=== PATIENT | male | born 1955 | race Caucasian/White ===

== ENCOUNTER → 2016-06-12 | Outpatient (CLI) | payer OTHER ==
--- NOTE | 2016-06-12 12:13 | REP ---
Sinus series: Four views. History: Chronic sinusitis. Findings: Bony orbital and paranasal sinus margins are intact. The frontal, maxillary, ethmoid and sphenoid sinuses are clear. Mastoid aeration is normal and symmetric. The nasopharynx and hypopharynx are unremarkable. Impression: Negative paranasal sinus views. Signed by Juan Antonio Argueta MD 06/12/2016 01:14 P
== END ==
LOC: M WUC 10:10
PROVIDERS: ATTEND Physician Assistant
DX: J32.9 Chronic sinusitis, unspecified (principal)

== ENCOUNTER → 2016-11-16 | Outpatient (REF) | payer OTHER ==
[2016-11-16 12:16] LABS: ALBUMIN 4.2 GM/DL (3.2-5.2); ALBUMIN/GLOBULIN RATIO 1.35 (1.00-1.93); ALKALINE PHOSPHATASE 71 U/L (45-117); ALT/SGPT 28 U/L (12-78); ANION GAP 9 MEQ/L (8-16); AST/SGOT 22 U/L (15-37); BILIRUBIN,TOTAL 1.4 MG/DL (0.2-1.0); BLOOD UREA NITROGEN 20 MG/DL (7-18); CARBON DIOXIDE LEVEL 27 MEQ/L (21-32); CHLORIDE LEVEL 106 MEQ/L (98-107); CHOLESTEROL LEVEL 239 MG/DL (<200); CREATININE FOR GFR 1.19 MG/DL (0.70-1.30); GLOMERULAR FILTRATION RATE > 60.0 (>49); GLUCOSE, FASTING 122 MG/DL (80-110); POTASSIUM SERUM 4.2 MEQ/L (3.5-5.1); SODIUM LEVEL 142 MEQ/L (136-145); TOTAL PROTEIN 7.3 GM/DL (6.4-8.2); TRIGLYCERIDES LEVEL 202 MG/DL (<150)
== END ==
LOC: M SFHCPLAZ 07:53
PROVIDERS: ATTEND Family Medicine
DX: E78.2 Mixed hyperlipidemia (principal); Z12.5 Encounter for screening for malignant neoplasm of prostate

== ENCOUNTER → 2017-04-28 | Outpatient (REF) | payer OTHER ==
[2017-04-28 12:24] LABS: ALBUMIN 4.4 GM/DL (3.2-5.2); ALBUMIN/GLOBULIN RATIO 1.52 (1.00-1.93); ALKALINE PHOSPHATASE 62 U/L (45-117); ALT/SGPT 40 U/L (12-78); ANION GAP 8 MEQ/L (8-16); AST/SGOT 25 U/L (7-37); BILIRUBIN,TOTAL 1.2 MG/DL (0.2-1.0); BLOOD UREA NITROGEN 18 MG/DL (7-18); CALCIUM LEVEL 9.2 MG/DL (8.8-10.2); CARBON DIOXIDE LEVEL 29 MEQ/L (21-32); CHLORIDE LEVEL 106 MEQ/L (98-107); CHOLESTEROL LEVEL 242 MG/DL (<200); CHOLESTEROL RISK RATIO 3.666 (<5); CREATININE FOR GFR 1.13 MG/DL (0.70-1.30); GLOMERULAR FILTRATION RATE > 60.0 (>49); GLUCOSE, FASTING 87 MG/DL (70-100); HDL CHOLESTEROL 66 MG/DL (>40); NON-HDL-C 176 MG/DL; POTASSIUM SERUM 4.4 MEQ/L (3.5-5.1); SODIUM LEVEL 143 MEQ/L (136-145); TOTAL PROTEIN 7.3 GM/DL (6.4-8.2); TRIGLYCERIDES LEVEL 115 MG/DL (<150)
[2017-04-28 14:40] LABS: ESTIMATED AVERAGE GLUCOSE 126 MG/DL (60-110)
== END ==
LOC: M SFHCPLAZ 08:24
DX: R73.03 Prediabetes (principal); E78.2 Mixed hyperlipidemia
CPT/HCPCS: 80053

== ENCOUNTER → 2017-05-04 | Outpatient (CLI) | payer OTHER | LOC: M ADAMS 11:12 | DX: M18.11 Unilateral primary osteoarthritis of first carpometacarpal joint, right hand (principal) | CPT/HCPCS: 73130 ==

== ENCOUNTER → 2017-10-05 | Outpatient (REF) | payer OTHER | LOC: M SFHCLERA 15:44 | DX: L57.0 Actinic keratosis (principal) ==

== ENCOUNTER 2018-03-15 09:17 | Emergency (ER) | payer MEDICARE, OTHER ==
[~2018-03-15] VITALS: Ht 180.3 cm; Wt 78.2 kg
[2018-03-15] MEDS ORDERED: ONDA8TAB7 PO (09:31)
[2018-03-15] MEDS ORDERED: OXYC-517 PO (09:31)
[2018-03-15] MEDS ORDERED: KETOROLAC 30 MG/ML VIAL (J1885) IV ONE (10:00)
[2018-03-15] MEDS ORDERED: NS 1,000 ML IV ONE (10:00)
[2018-03-15] MEDS ORDERED: ONDANSETRON 4MG/2ML VIAL (J2405) IV ONE (10:00)
[2018-03-15 10:16] LABS: BASO # 0.1 10^3/uL (0.0-0.2); BASO % 0.5 % (0.0-1.0); EOS # 0.1 10^3/uL (0.0-0.50); EOS % 0.5 % (0.0-3.0); HEMOGLOBIN 15.9 g/dl (13.5-17.5); LYMPH # 1.3 10^3/uL (1.5-4.5); MEAN CORPUSCULAR HEMOGLOBIN 30.9 pg (27.0-33.0); MEAN CORPUSCULAR HGB CONC 34.6 g/dl (32.0-36.5); MEAN CORPUSCULAR VOLUME 89.5 fl (80.0-96.0); MONO # 1.3 10^3/uL (0.0-0.8); MONO % 11.3 % (0.0-5.0); NEUTROPHILS # 8.3 10^3/uL (1.8-7.7); NEUTROPHILS % 75.2 % (36.0-66.0); PLATELET COUNT, AUTOMATED 331 10^3/uL (150-450); RED BLOOD COUNT 5.14 10^6/uL (4.30-6.10)
--- NOTE | 2018-03-15 10:27 | REP ---
CT abdomen and pelvis without IV or oral contrast: History: Left flank pain. Comparison CT study is from August 04, 2005. CT findings: Digital preliminary knee bolter radiograph is unremarkable. The lung bases are clear on axial CT images. The liver shows mild diffuse fatty infiltration but is otherwise normal. No gallbladder abnormality is seen. Spleen is unremarkable. No adrenal lesion is seen on either side. Pancreas is unremarkable. There is no evidence of hydronephrosis, renal calculus, or mass. There is pancolonic diverticulosis. Diverticulosis changes are most numerous in the sigmoid colon. There is mural thickening and pericolonic streaking in an area of multiple large diverticula in the distal descending colon. This is consistent with acute diverticulitis. No abscess or free air is seen. There is some mild pericolonic streaking at the splenic flexure of the colon as well which may reflect old inflammatory change. Diverticulosis is seen here as well. There is no evidence of bowel obstruction. There are dystrophic calcifications in the prostate. No abdominal wall defect is seen. No bony destructive lesion is observed. Impression: Pancolonic diverticulosis. Acute diverticulitis distal descending colon. No evidence of abscess or free air. Electronically Signed by Juan Antonio Argueta MD 03/15/2018 03:08 P
[2018-03-15] MEDS ORDERED: FLAG500T PO (10:39)
[2018-03-15] MEDS ORDERED: CIPR-249 PO (10:39)
[2018-03-15 10:45] LABS: CALCIUM LEVEL 9.4 MG/DL (8.8-10.2); CREATININE FOR GFR 1.34 MG/DL (0.70-1.30); POTASSIUM SERUM 4.1 MEQ/L (3.5-5.1)
[2018-03-15] MEDS ORDERED: CIPROFLOXACIN 400 MG in APPROPRIATE DILUENT 1 EA IV ONE (10:45)
[2018-03-15] MEDS ORDERED: metroNIDAZOLE 500 MG in APPROPRIATE DILUENT 1 EA IV ONE (10:45)
[2018-03-15] MEDS ORDERED: REGL10TA6 PO (12:21)
[2018-03-15 12:46] VITALS: BP 157/78
[2018-03-15] MEDS ORDERED: DICY20TA11 PO (12:52)
== END 2018-03-15 12:55 | disposition home or self-care (01) ==
LOC: M ED 09:17
DX: K57.50 Diverticulosis of both small and large intestine without perforation or abscess without bleeding (principal); K57.92 Diverticulitis of intestine, part unspecified, without perforation or abscess without bleeding
CPT/HCPCS: 74176; 80053; 81001; 83690; 85025; 96365; 96366; 96374; 99284; J0744; J1885; J2405

== ENCOUNTER → 2018-04-13 | Outpatient (REF) | payer MEDICARE, OTHER ==
[~2018-04-13] MED LIST: CIPR-249 PO; DICY20TA11 PO; FLAG500T PO; ONDA8TAB7 PO; OXYC-517 PO; REGL10TA6 PO
[2018-04-13 16:04] LABS: BASO % 0.3 % (0.0-1.0); EOS # 0.1 10^3/uL (0.0-0.50); EOS % 0.4 % (0.0-3.0); HEMATOCRIT 45.7 % (42.0-52.0); HEMOGLOBIN 15.7 g/dl (13.5-17.5); LYMPH # 1.3 10^3/uL (1.5-4.5); LYMPH % 9.3 % (24.0-44.0); MEAN CORPUSCULAR HGB CONC 34.4 g/dl (32.0-36.5); MEAN CORPUSCULAR VOLUME 90.1 fl (80.0-96.0); MONO # 1.2 10^3/uL (0.0-0.8); MONO % 8.7 % (0.0-5.0); NEUTROPHILS # 11.6 10^3/uL (1.8-7.7); PLATELET COUNT, AUTOMATED 219 10^3/uL (150-450); RED BLOOD COUNT 5.07 10^6/uL (4.30-6.10); WHITE BLOOD COUNT 14.3 10^3/uL (4.0-10.0)
[2018-04-13 16:09] LABS: ALBUMIN 4.3 GM/DL (3.2-5.2); ALT/SGPT 21 U/L (12-78); BILIRUBIN,TOTAL 1.5 MG/DL (0.2-1.0); BLOOD UREA NITROGEN 16 MG/DL (7-18); CALCIUM LEVEL 9.2 MG/DL (8.8-10.2); CARBON DIOXIDE LEVEL 29 MEQ/L (21-32); CHLORIDE LEVEL 101 MEQ/L (98-107); CREATININE FOR GFR 1.15 MG/DL (0.70-1.30); GLOMERULAR FILTRATION RATE > 60.0 (>49); GLUCOSE, FASTING 114 MG/DL (70-100); POTASSIUM SERUM 4.1 MEQ/L (3.5-5.1); SODIUM LEVEL 139 MEQ/L (136-145); TOTAL PROTEIN 7.6 GM/DL (6.4-8.2)
== END ==
LOC: M SFHCPLAZ 13:47
PROVIDERS: ATTEND Nurse Practitioner Family
DX: K57.92 Diverticulitis of intestine, part unspecified, without perforation or abscess without bleeding (principal); R19.7 Diarrhea, unspecified

== ENCOUNTER → 2018-04-28 | Outpatient (CLI) | payer MEDICARE, OTHER ==
[2018-04-28 10:44] LABS: HEMATOCRIT 44.9 % (42.0-52.0); HEMOGLOBIN 15.2 g/dl (13.5-17.5); MEAN CORPUSCULAR HEMOGLOBIN 30.4 pg (27.0-33.0); MEAN CORPUSCULAR HGB CONC 33.9 g/dl (32.0-36.5); MEAN CORPUSCULAR VOLUME 89.8 fl (80.0-96.0); PLATELET COUNT, AUTOMATED 310 10^3/uL (150-450); WHITE BLOOD COUNT 4.9 10^3/uL (4.0-10.0)
[2018-04-28 11:02] LABS: HEMOGLOBIN A1c 6.3 %
[2018-04-28 11:12] LABS: ALBUMIN 4.3 GM/DL (3.2-5.2); ALT/SGPT 28 U/L (12-78); BILIRUBIN,TOTAL 0.6 MG/DL (0.2-1.0); BLOOD UREA NITROGEN 22 MG/DL (7-18); CARBON DIOXIDE LEVEL 28 MEQ/L (21-32); CHLORIDE LEVEL 107 MEQ/L (98-107); CHOLESTEROL LEVEL 187 MG/DL (<200); CHOLESTEROL RISK RATIO 2.493 (<5); CREATININE FOR GFR 1.12 MG/DL (0.70-1.30); GLOMERULAR FILTRATION RATE > 60.0 (>49); GLUCOSE, FASTING 110 MG/DL (70-100); HDL CHOLESTEROL 75 MG/DL (>40); LDL CHOLESTEROL 93 MG/DL (<100); NON-HDL-C 112 MG/DL; POTASSIUM SERUM 4.7 MEQ/L (3.5-5.1); SODIUM LEVEL 144 MEQ/L (136-145); TOTAL PROTEIN 7.2 GM/DL (6.4-8.2); TRIGLYCERIDES LEVEL 95 MG/DL (<150)
== END ==
LOC: M WUC 08:07
PROVIDERS: ATTEND Family Medicine
DX: A04.72 Enterocolitis due to Clostridium difficile, not specified as recurrent (principal); E78.2 Mixed hyperlipidemia; R73.03 Prediabetes; Z12.5 Encounter for screening for malignant neoplasm of prostate
CPT/HCPCS: 36415; 80053; 80061; 83036; 85027; G0103

== ENCOUNTER → 2019-04-22 | Outpatient (REF) | payer MEDICARE, OTHER ==
[~2019-04-22] MED LIST changes: +ONDA8TAB10 PO; -ONDA8TAB7 PO
[2019-04-22 13:44] LABS: ALBUMIN 4.3 GM/DL (3.2-5.2); BILIRUBIN,TOTAL 1.9 MG/DL (0.2-1.0); CALCIUM LEVEL 9.1 MG/DL (8.8-10.2); CHOLESTEROL RISK RATIO 2.785 (<5); CREATININE FOR GFR 1.37 MG/DL (0.70-1.30); GLOMERULAR FILTRATION RATE 55.3 (>49)
== END ==
LOC: M SFHCADAM 08:07
PROVIDERS: ATTEND Family Medicine
DX: E78.2 Mixed hyperlipidemia (principal); R73.03 Prediabetes; Z12.5 Encounter for screening for malignant neoplasm of prostate
CPT/HCPCS: 80053; 80061; 83036; G0103

== ENCOUNTER → 2019-05-08 | Outpatient (CLI) | payer MEDICARE, OTHER ==
--- NOTE | 2019-05-08 14:48 | REP ---
Clinical: Chronic stage III renal disease. Technique: Real time murray scale ultrasound examination using curved array transducer. Findings: The bilateral kidneys are normal in contour, size, echogenicity, and reniform shape out hydronephrosis, nephrolithiasis, cystic or renal mass lesion. Right kidney measures 11.2 x 4.5 x 4.7 cm. Left kidney measures 11.4 x 4.6 x 5.4 cm. The bladder is normal. The prostate gland is heterogeneous and mildly enlarged measuring 5.1 x 3.4 x 5.0 cm. Impression: Normal bilateral kidneys. Mild prostatomegaly. Electronically Signed by Jatin Dsouza MD 05/08/2019 02:39 P
== END ==
LOC: M RAD 14:01
PROVIDERS: ATTEND Family Medicine
DX: N18.3 Chronic kidney disease, stage 3 (moderate) (principal)

== ENCOUNTER 2019-09-21 09:34 | Emergency (ER) | payer MEDICARE, OTHER ==
[~2019-09-21] VITALS: Ht 180.3 cm; Wt 85.0 kg
[2019-09-21] MEDS ORDERED: SILD100T PO (09:40)
[2019-09-21] MEDS ORDERED: RIZA10TA58 PO (09:40)
[2019-09-21] MEDS ORDERED: ISOVUE-370 76% 100ML VIAL As Ordered ONE (10:12)
[2019-09-21 10:15] LABS: BASO % 0.5 % (0.0-1.0); EOS # 0.2 10^3/uL (0.0-0.5); EOS % 2.5 % (0.0-3.0); HEMATOCRIT 47.1 % (42.0-52.0); HEMOGLOBIN 15.7 g/dl (13.5-17.5); LYMPH # 1.6 10^3/uL (1.5-5.0); LYMPH % 22.2 % (24.0-44.0); MEAN CORPUSCULAR HEMOGLOBIN 30.9 pg (27.0-33.0); MEAN CORPUSCULAR HGB CONC 33.3 g/dl (32.0-36.5); MEAN CORPUSCULAR VOLUME 92.7 fl (80.0-96.0); MONO # 0.7 10^3/uL (0.0-0.8); MONO % 10.1 % (0.0-5.0); NEUTROPHILS # 4.7 10^3/uL (1.5-8.5); NEUTROPHILS % 64.4 % (36.0-66.0); PLATELET COUNT, AUTOMATED 217 10^3/uL (150-450); RED BLOOD COUNT 5.08 10^6/uL (4.30-6.10); WHITE BLOOD COUNT 7.3 10^3/uL (4.0-10.0)
--- NOTE | 2019-09-21 10:41 | REP ---
Clinical: Left lower quadrant pain. Technique: Axial contrast enhanced images from the lung bases to the pubic symphysis using oral (per protocol) and 100 ml Isovue 370 intravenous contrast material with coronal and sagittal re-formations. Findings: Mucosal thickening with pericolonic inflammatory stranding surrounding few diverticula of the distal descending colon consistent with acute diverticulitis (images 85 - 105). Further colonic and primarily sigmoid diverticulosis noted. Remainder of the small and large bowel is grossly unremarkable. No evidence for obstruction, perforation, or drainable collection/abscess. Fatty infiltration to the liver noted. Spleen, pancreas, gallbladder, bilateral adrenal glands and kidneys are normal. No ascites. No free air. No adenopathy. Pelvis demonstrates normal bladder and prostatomegaly. The abdominal aorta without aneurysm or dissection. Musculoskeletal structures are intact. Lung bases are clear. Impression: Acute diverticulitis involving the distal descending colon. No evidence for bowel obstruction or perforation. No drainable collection or abscess. Electronically Signed by Jatin Dsouza MD 09/21/2019 10:31 A
[2019-09-21 10:51] LABS: ALBUMIN 4.1 GM/DL (3.2-5.2); BILIRUBIN,DIRECT 0.4 MG/DL (0.0-0.2); BILIRUBIN,TOTAL 1.6 MG/DL (0.2-1.0); TOTAL PROTEIN 7.8 GM/DL (6.4-8.2)
[2019-09-21] MEDS ORDERED: CIPR-249 PO (11:12)
[2019-09-21] MEDS ORDERED: FLAG500T PO (11:12)
[2019-09-21 11:40] VITALS: BP 146/83
== END 2019-09-21 11:43 | disposition home or self-care (01) ==
LOC: M ED 09:34
DX: K57.32 Diverticulitis of large intestine without perforation or abscess without bleeding (principal); K21.9 Gastro-esophageal reflux disease without esophagitis; Z87.442 Personal history of urinary calculi; Z79.899 Other long term (current) drug therapy; Z88.0 Allergy status to penicillin
CPT/HCPCS: 36415; 74177; 80047; 80076; 81001; 83605; 83690; 85025; 99284; Q9967

== ENCOUNTER → 2020-04-03 | Outpatient (REF) | payer MEDICARE, OTHER ==
[~2020-04-03] MED LIST changes: +RIZA10TA58 PO; +SILD100T PO
[2020-04-03 13:53] LABS: ALBUMIN 4.4 GM/DL (3.2-5.2); CALCIUM LEVEL 9.4 MG/DL (8.8-10.2); CREATININE FOR GFR 1.36 MG/DL (0.70-1.30); GLOMERULAR FILTRATION RATE 55.6 (>49); PHOSPHORUS LEVEL 2.8 MG/DL (2.5-4.9); POTASSIUM SERUM 4.5 MEQ/L (3.5-5.1)
[2020-04-03 14:37] LABS: BILIRUBIN,TOTAL 1.1 MG/DL (0.2-1.0); CHOLESTEROL RISK RATIO 2.481 (<5); PROSTATIC SPECIFIC AG MONITOR 1.9 NG/ML (< 4.00); TOTAL PROTEIN 7.3 GM/DL (6.4-8.2)
== END ==
LOC: M SFHCADAM 08:39
PROVIDERS: ATTEND Family Medicine
DX: N18.30 Chronic kidney disease, stage 3 unspecified (principal); E78.5 Hyperlipidemia, unspecified; Z12.5 Encounter for screening for malignant neoplasm of prostate; R97.20 Elevated prostate specific antigen [PSA]

== ENCOUNTER → 2020-10-01 | Outpatient (REF) | payer MEDICARE, OTHER ==
[2020-10-01 14:28] LABS: ALBUMIN 4.6 GM/DL (3.2-5.2); BILIRUBIN,TOTAL 1.6 MG/DL (0.2-1.0); CALCIUM LEVEL 10.2 MG/DL (8.8-10.2); CHOLESTEROL RISK RATIO 3.493 (<5); CREATININE FOR GFR 1.42 MG/DL (0.70-1.30); GLOMERULAR FILTRATION RATE 52.9 (>49); POTASSIUM SERUM 5.3 MEQ/L (3.5-5.1)
== END ==
LOC: M SFHCADAM 08:27
PROVIDERS: ATTEND Family Medicine
DX: R73.03 Prediabetes (principal); E78.2 Mixed hyperlipidemia; Z12.5 Encounter for screening for malignant neoplasm of prostate
CPT/HCPCS: 80053; 80061; 83036; G0103

== ENCOUNTER → 2020-11-16 | Outpatient (REF) | payer MEDICARE, OTHER | LOC: M SFHCADAM 08:25 | PROVIDERS: ATTEND Family Medicine | DX: R97.20 Elevated prostate specific antigen [PSA] (principal) ==

== ENCOUNTER → 2021-04-13 | Outpatient (REF) | payer MEDICARE, OTHER ==
[~2021-04-13] MED LIST changes: -DICY20TA11 PO; +DICY20TA20 PO; +ONDA-84 PO; -ONDA8TAB10 PO
[2021-04-13 14:17] LABS: ALBUMIN 4.4 GM/DL (3.2-5.2); BILIRUBIN,TOTAL 0.9 MG/DL (0.2-1.0); CALCIUM LEVEL 9.9 MG/DL (8.8-10.2); CHOLESTEROL RISK RATIO 3.931 (<5); CREATININE FOR GFR 1.43 MG/DL (0.70-1.30); GLOMERULAR FILTRATION RATE 52.4 (>49); POTASSIUM SERUM 4.5 MEQ/L (3.5-5.1); PROSTATIC SPECIFIC AG MONITOR 2.16 NG/ML (< 4.00); TOTAL PROTEIN 7.5 GM/DL (6.4-8.2)
== END ==
LOC: M SFHCADAM 09:21
PROVIDERS: ATTEND Family Medicine
DX: E78.2 Mixed hyperlipidemia (principal); R97.20 Elevated prostate specific antigen [PSA]

== ENCOUNTER → 2021-11-16 | Outpatient (REF) | payer MEDICARE, OTHER ==
[2021-11-16 14:46] LABS: HEMOGLOBIN A1c 5.7 %
[2021-11-16 14:57] LABS: ALBUMIN 4.5 GM/DL (3.2-5.2); BILIRUBIN,TOTAL 1.5 MG/DL (0.2-1.0); CALCIUM LEVEL 9.8 MG/DL (8.8-10.2); CHOLESTEROL RISK RATIO 2.454 (<5); CREATININE FOR GFR 1.39 MG/DL (0.70-1.30); GLOMERULAR FILTRATION RATE 54.1 (>49); TOTAL PROTEIN 7.3 GM/DL (6.4-8.2)
== END ==
LOC: M SFHCADAM 08:03
PROVIDERS: ATTEND Family Medicine
DX: E78.2 Mixed hyperlipidemia (principal); R73.03 Prediabetes

== ENCOUNTER → 2022-05-25 | Outpatient (REF) | payer MEDICARE, OTHER ==
[2022-05-25 14:12] LABS: ALBUMIN 4.1 G/DL (3.2-5.2); BILIRUBIN,TOTAL 0.8 MG/DL (0.3-1.2); CALCIUM LEVEL 9.1 MG/DL (8.3-10.6); CHOLESTEROL RISK RATIO 3.21 (<5); CREATININE FOR GFR 1.66 MG/DL (0.70-1.30); GLOMERULAR FILTRATION RATE 43.9 (>49); HDL CHOLESTEROL 74.1 MG/DL (>40); LDL CHOLESTEROL 134.5 MG/DL (<100); POTASSIUM SERUM 4.3 MMOL/L (3.5-5.1); PROSTATIC SPECIFIC AG MONITOR 1.9 NG/ML (< 4.00)
[2022-05-25 14:16] LABS: FREE T4 1.13 NG/DL (0.89-1.76); THYROID STIMULATING HORMONE 2.205 uIU/ML (0.55-4.78)
[2022-05-25 14:26] LABS: HEMATOCRIT 47.1 % (42.0-52.0); HEMOGLOBIN 15.8 g/dl (13.5-17.5); MEAN CORPUSCULAR HEMOGLOBIN 31.6 pg (27.0-33.0); MEAN CORPUSCULAR HGB CONC 33.5 g/dl (32.0-36.5); MEAN CORPUSCULAR VOLUME 94.2 fl (80.0-96.0); PLATELET COUNT, AUTOMATED 234 10^3/uL (150-450); WHITE BLOOD COUNT 6.2 10^3/uL (4.0-10.0)
== END ==
LOC: M SFHCADAM 07:18
PROVIDERS: ATTEND Family Medicine
DX: N18.30 Chronic kidney disease, stage 3 unspecified (principal); E78.2 Mixed hyperlipidemia; R73.03 Prediabetes; N52.8 Other male erectile dysfunction; R97.20 Elevated prostate specific antigen [PSA]

== ENCOUNTER → 2022-09-05 | Outpatient (REF) | payer MEDICARE, OTHER ==
[2022-09-05 14:10] LABS: HEMATOCRIT 46.8 % (42.0-52.0); HEMOGLOBIN 15.5 g/dl (13.5-17.5); MEAN CORPUSCULAR HEMOGLOBIN 30.8 pg (27.0-33.0); MEAN CORPUSCULAR HGB CONC 33.1 g/dl (32.0-36.5); PLATELET COUNT, AUTOMATED 267 10^3/uL (150-450); RED BLOOD COUNT 5.03 10^6/uL (4.30-6.10); WHITE BLOOD COUNT 5.8 10^3/uL (4.0-10.0)
[2022-09-05 14:36] LABS: ALBUMIN 4.4 G/DL (3.2-5.2); BILIRUBIN,TOTAL 1.8 MG/DL (0.3-1.2); CALCIUM LEVEL 9.7 MG/DL (8.3-10.6); CHOLESTEROL RISK RATIO 2.64 (<5); CREATININE FOR GFR 1.55 MG/DL (0.70-1.30); GLOMERULAR FILTRATION RATE 47.6 (>49); HDL CHOLESTEROL 82.3 MG/DL (>40); LDL CHOLESTEROL 119.1 MG/DL (<100); NON-HDL-C 135.7 MG/DL; POTASSIUM SERUM 4.4 MMOL/L (3.5-5.1); TOTAL PROTEIN 7.3 G/DL (5.7-8.2)
== END ==
LOC: M SFHCADAM 08:04
PROVIDERS: ATTEND Family Medicine
DX: N18.31 Chronic kidney disease, stage 3a (principal); R73.03 Prediabetes; E78.2 Mixed hyperlipidemia

== ENCOUNTER → 2023-03-02 | Outpatient (REF) | payer MEDICARE, OTHER ==
[2023-03-02 14:56] LABS: ALBUMIN 4.4 G/DL (3.2-5.2); BILIRUBIN,TOTAL 1.6 MG/DL (0.3-1.2); CALCIUM LEVEL 10.3 MG/DL (8.3-10.6); CHOLESTEROL RISK RATIO 3.9 (<5); CREATININE FOR GFR 1.76 MG/DL (0.70-1.30); HDL CHOLESTEROL 59.6 MG/DL (>40); LDL CHOLESTEROL 132.2 MG/DL (<100); NON-HDL-C 173.4 MG/DL; POTASSIUM SERUM 4.6 MMOL/L (3.5-5.1); TOTAL PROTEIN 7.4 G/DL (5.7-8.2)
[2023-03-02 15:09] LABS: HEMOGLOBIN 16.7 g/dl (13.5-17.5); MEAN CORPUSCULAR HEMOGLOBIN 31.2 pg (27.0-33.0); MEAN CORPUSCULAR HGB CONC 33.4 g/dl (32.0-36.5); MEAN CORPUSCULAR VOLUME 93.3 fl (80.0-96.0); PLATELET COUNT, AUTOMATED 257 10^3/uL (150-450); RED BLOOD COUNT 5.36 10^6/uL (4.30-6.10); WHITE BLOOD COUNT 5.7 10^3/uL (4.0-10.0)
[2023-03-02 15:44] LABS: HEMOGLOBIN A1c 5.8 % (4.0-6.0)
== END ==
LOC: M SFHCADAM 07:13
PROVIDERS: ATTEND Family Medicine
DX: N18.31 Chronic kidney disease, stage 3a (principal); E78.2 Mixed hyperlipidemia; R73.03 Prediabetes

== ENCOUNTER → 2023-03-09 | Outpatient (REF) | payer MEDICARE, OTHER ==
[~2023-03-09] MED LIST changes: +FLUTISP
[2023-03-09 14:17] LABS: CREATININE, URINE 181.4 MG/DL; MAU/CREAT RATIO 79.3 MCG/MG (0.0-30.0)
== END ==
LOC: M SFHCADAM 10:28
PROVIDERS: ATTEND Family Medicine
DX: E11.9 Type 2 diabetes mellitus without complications (principal); N18.31 Chronic kidney disease, stage 3a

== ENCOUNTER 2023-03-15 08:50 | Day surgery (SDC) | payer MEDICARE, OTHER ==
[~2023-03-15] VITALS: Ht 182.9 cm; Wt 77.6 kg
[~2023-03-15 08:50] MED LIST changes: +BSS IRRIG/VANCO(10MG)/TOBRA(5MG)/EPINEPH(1:1000-0.5CC)500ML BAG-ORONLY IR ONE; +CEFUROXIME 1MG/0.1ML INTRACAMERAL INJ As Ordered ONE; +CYCLOPENTOLATE 1% OPHTH SOLN 2ML BTL OD SCH; +LIDOCAINE 1% SDV 5ML VIAL As Ordered ONE; +LIDOCAINE 3.5 % 1ML OPHTH TOPICAL GEL OU ONE; +MIDAZOLAM INJ 2MG/2ML VIAL As Ordered ONE; +OFLOXACIN 0.3 % (OCUFLOX) OPTH SOL 5ML OD ONE; +PHENYLEPHRINE 10% OPHTH SOL 5ML OD PRN; +PHENYLEPHRINE 2.5% OPHTH SOL 2ML OD SCH; +TROPICAMIDE 1% OPHTH SOLN 15ML OD SCH; +fentaNYL 100 MCG/2 ML INJECTION As Ordered ONE
[2023-03-15] MEDS ORDERED: POVIDONE-IODINE 5% OPHTH PREP SOL 30ML As Ordered ONE (10:56)
[2023-03-15 11:40] VITALS: BP 138/73; TEMP 97.4; O2SAT 99
== END 2023-03-15 11:54 | disposition home or self-care (01) ==
LOC: M SDC 08:50
PROVIDERS: ATTEND Ophthalmology
DX: H25.11 Age-related nuclear cataract, right eye (principal); G43.909 Migraine, unspecified, not intractable, without status migrainosus; Z79.899 Other long term (current) drug therapy
CPT/HCPCS: 66984; J0697; J2250; J3010; V2632

== ENCOUNTER → 2023-04-12 | Outpatient (CLI) | payer MEDICARE, OTHER ==
[~2023-04-12] MED LIST changes: -BSS IRRIG/VANCO(10MG)/TOBRA(5MG)/EPINEPH(1:1000-0.5CC)500ML BAG-ORONLY IR ONE; -CEFUROXIME 1MG/0.1ML INTRACAMERAL INJ As Ordered ONE; -CYCLOPENTOLATE 1% OPHTH SOLN 2ML BTL OD SCH; -LIDOCAINE 1% SDV 5ML VIAL As Ordered ONE; -LIDOCAINE 3.5 % 1ML OPHTH TOPICAL GEL OU ONE; -MIDAZOLAM INJ 2MG/2ML VIAL As Ordered ONE; -OFLOXACIN 0.3 % (OCUFLOX) OPTH SOL 5ML OD ONE; -PHENYLEPHRINE 10% OPHTH SOL 5ML OD PRN; -PHENYLEPHRINE 2.5% OPHTH SOL 2ML OD SCH; +PROHANCE 279.3MG/ML 15ML VIAL ONE; -TROPICAMIDE 1% OPHTH SOLN 15ML OD SCH; -fentaNYL 100 MCG/2 ML INJECTION As Ordered ONE
== END ==
LOC: M PLAIMG 10:23
PROVIDERS: ATTEND Physician Assistant
DX: H90.3 Sensorineural hearing loss, bilateral (principal); J34.1 Cyst and mucocele of nose and nasal sinus
CPT/HCPCS: 70553; A9576

== ENCOUNTER → 2023-04-14 | Outpatient (REF) | payer MEDICARE, OTHER ==
[~2023-04-14] MED LIST changes: -PROHANCE 279.3MG/ML 15ML VIAL ONE
[2023-04-14 18:21] LABS: TOTAL PROTEIN,RANDOM URINE 61.9 MG/DL (0.0-14.0)
[2023-04-14 18:26] LABS: CREATININE,RANDOM URINE 228.7 MG/DL
== END ==
LOC: M LAB REF 16:58
PROVIDERS: ATTEND Internal Medicine Nephrology
DX: N18.31 Chronic kidney disease, stage 3a (principal)

== ENCOUNTER 2023-04-28 16:33 | Emergency (ER) | payer OTHER, MEDICARE ==
[~2023-04-28] VITALS: Ht 182.9 cm; Wt 80.7 kg
[~2023-04-28 16:33] MED LIST changes: -IBUP-1022 PO
[2023-04-28] MEDS ORDERED: NS 1,000 ML IV SCH (17:15)
[2023-04-28] MEDS ORDERED: MORPHINE 4 MG/ML 1ML VIAL IV ONE (17:15)
[2023-04-28] MEDS ORDERED: PANTOPRAZOLE 40MG VIAL IV ONE (17:15)
[2023-04-28] MEDS ORDERED: ONDANSETRON 4MG 2ML VIAL IV ONE (17:15)
[2023-04-28 17:35] LABS: BASO % 0.4 % (0.0-1.0); EOS % 0.3 % (0.0-3.0); HEMATOCRIT 44.2 % (42.0-52.0); HEMOGLOBIN 15.3 g/dl (13.5-17.5); LYMPH # 1.2 10^3/uL (1.5-5.0); LYMPH % 11.5 % (24.0-44.0); MEAN CORPUSCULAR HGB CONC 34.6 g/dl (32.0-36.5); MEAN CORPUSCULAR VOLUME 89.7 fl (80.0-96.0); MONO # 0.6 10^3/uL (0.0-0.8); MONO % 6.1 % (2.0-8.0); NEUTROPHILS # 8.5 10^3/uL (1.5-8.5); NEUTROPHILS % 81.3 % (36.0-66.0); PLATELET COUNT, AUTOMATED 247 10^3/uL (150-450); RED BLOOD COUNT 4.93 10^6/uL (4.30-6.10); WHITE BLOOD COUNT 10.5 10^3/uL (4.0-10.0)
[2023-04-28 18:07] LABS: ALBUMIN 4.4 G/DL (3.2-5.2); BILIRUBIN,DIRECT 0.3 MG/DL (<0.4); CALCIUM LEVEL 10.4 MG/DL (8.3-10.6); CREATININE FOR GFR 1.48 MG/DL (0.70-1.30); TOTAL PROTEIN 7.4 G/DL (5.7-8.2)
[2023-04-28] MEDS ORDERED: LABETALOL 100MG/20ML VIAL IV STA (18:28)
[2023-04-28] MEDS ORDERED: MORPHINE 2 MG/ML 1ML VIAL IV ONE (18:30)
[2023-04-28 18:31] LABS: INR 1.02; PROTHROMBIN TIME 13.1 SECONDS (12.5-14.5)
[2023-04-28] MEDS ORDERED: IBUP-1022 PO (18:33)
[2023-04-28 18:53] LABS: RSV AMPLIFICATION NEGATIVE (NEGATIVE)
[2023-04-28 18:57] VITALS: BP 192/93; TEMP 97.9; O2SAT 98
[2023-04-28] MEDS ORDERED: MAGNESIUM CITRATE 300ML BTL PO ONE (19:00)
[2023-04-28 19:06] VITALS: BP 199/95
== END 2023-04-28 19:21 | disposition home or self-care (01) ==
LOC: M ED 16:33
DX: K59.00 Constipation, unspecified (principal); Z88.0 Allergy status to penicillin; Z79.1 Long term (current) use of non-steroidal anti-inflammatories (NSAID); Z79.899 Other long term (current) drug therapy
CPT/HCPCS: 74176; 80048; 80076; 83605; 83690; 85025; 85610; 87631; 96361; 96374; 96375; 96376; 99284; C9113; J1920; J2405

== ENCOUNTER → 2023-04-28 | Outpatient (CLI) | payer MEDICARE, OTHER ==
[~2023-04-28] MED LIST changes: +IBUP-1022 PO
== END ==
LOC: M WHC 13:36
PROVIDERS: ATTEND Internal Medicine Nephrology
DX: N18.31 Chronic kidney disease, stage 3a (principal)

== ENCOUNTER → 2023-05-03 | Day surgery (SDC) | payer MEDICARE, OTHER ==
[~2023-05-03] VITALS: Ht 182.9 cm; Wt 77.5 kg
[~2023-05-03] MED LIST changes: +IBUP-1022 PO; +MIDAZOLAM INJ 2MG/2ML VIAL As Ordered ONE; +PHENYLEPHRINE 10% OPHTH SOL 5ML OS PRN; +fentaNYL 100 MCG/2 ML INJECTION As Ordered ONE
[2023-05-03] MEDS: TROPICAMIDE 1% OPHTH SOLN 15ML OS SCH (10:31)
[2023-05-03] MEDS: CYCLOPENTOLATE 1% OPHTH SOLN 2ML BTL OS SCH (10:31)
[2023-05-03] MEDS: OFLOXACIN 0.3 % (OCUFLOX) OPTH SOL 5ML OS ONE (10:31)
[2023-05-03] MEDS: LIDOCAINE 3.5 % 1ML OPHTH TOPICAL GEL OU ONE (10:31)
[2023-05-03] MEDS: PHENYLEPHRINE 2.5% OPHTH SOL 2ML OS SCH (10:31)
[2023-05-03] MEDS: LIDOCAINE 1% SDV 5ML VIAL As Ordered ONE (11:06)
[2023-05-03] MEDS: CEFUROXIME 1MG/0.1ML INTRACAMERAL INJ As Ordered ONE (11:06)
[2023-05-03] MEDS: BSS IRRIG/VANCO(10MG)/TOBRA(5MG)/EPINEPH(1:1000-0.5CC)500ML BAG-ORONLY As Ordered ONE (11:07)
[2023-05-03 11:16] VITALS: BP 143/68; TEMP 98.1; O2SAT 99
== END | disposition home or self-care (01) ==
LOC: M SDC 09:35
PROVIDERS: ATTEND Ophthalmology
DX: H25.12 Age-related nuclear cataract, left eye (principal); K57.92 Diverticulitis of intestine, part unspecified, without perforation or abscess without bleeding; G43.909 Migraine, unspecified, not intractable, without status migrainosus; Z88.0 Allergy status to penicillin; Z79.899 Other long term (current) drug therapy
CPT/HCPCS: 66984; J0697; J2250; J3010; V2632

== ENCOUNTER → 2023-06-14 | Outpatient (REF) | payer MEDICARE, OTHER ==
[~2023-06-14] MED LIST changes: -MIDAZOLAM INJ 2MG/2ML VIAL As Ordered ONE; -PHENYLEPHRINE 10% OPHTH SOL 5ML OS PRN; -fentaNYL 100 MCG/2 ML INJECTION As Ordered ONE
[2023-06-14 14:34] LABS: ALBUMIN 4.3 G/DL (3.2-5.2); BILIRUBIN,TOTAL 1.3 MG/DL (0.3-1.2); CALCIUM LEVEL 9.4 MG/DL (8.3-10.6); CHOLESTEROL RISK RATIO 2.96 (<5); CREATININE FOR GFR 1.57 MG/DL (0.70-1.30); GLOMERULAR FILTRATION RATE 46.7 (>42); LDL CHOLESTEROL 91.2 MG/DL (<100); POTASSIUM SERUM 4.3 MMOL/L (3.5-5.1); TOTAL PROTEIN 7.2 G/DL (5.7-8.2)
== END ==
LOC: M SFHCADAM 07:21
PROVIDERS: ATTEND Family Medicine
DX: E11.9 Type 2 diabetes mellitus without complications (principal); E78.2 Mixed hyperlipidemia

== ENCOUNTER 2023-11-15 11:07 | Day surgery (SDC) | payer MEDICARE, OTHER ==
[~2023-11-15] VITALS: Ht 180.3 cm; Wt 77.2 kg
[~2023-11-15 11:07] MED LIST changes: +AMLO1TAB24 PO; +DRON400T PO; +ELIQ5TAB PO; +KETO0.5S4; +METO1TAB87 PO; +PREDOPD; +RIZA10TA64 PO
[2023-11-15] MEDS: NS 1,000 ML IV ONE (11:52)
[2023-11-15] MEDS ORDERED: propofoL 200 MG/20 ML VIAL As Ordered ONE (12:40)
[2023-11-15] MEDS ORDERED: ESMOLOL INJ 100MG/10ML VIAL As Ordered ONE (12:45)
[2023-11-15 12:55] VITALS: TEMP 97.5
[2023-11-15] MEDS ORDERED: PHENYLephrine 500MCG 5ML (100MCG/ML) SYRINGE As Ordered ONE (12:59)
[2023-11-15 13:29] VITALS: BP 121/80; O2SAT 98
== END 2023-11-15 13:42 | disposition home or self-care (01) ==
LOC: M OPP 11:07
PROVIDERS: ATTEND Internal Medicine Gastroenterology
DX: Z12.11 Encounter for screening for malignant neoplasm of colon (principal); K64.0 First degree hemorrhoids; K57.30 Diverticulosis of large intestine without perforation or abscess without bleeding; I48.91 Unspecified atrial fibrillation; I10 Essential (primary) hypertension; Z87.891 Personal history of nicotine dependence; Z79.01 Long term (current) use of anticoagulants; Z79.1 Long term (current) use of non-steroidal anti-inflammatories (NSAID); Z79.52 Long term (current) use of systemic steroids; Z79.899 Other long term (current) drug therapy; Z88.0 Allergy status to penicillin
CPT/HCPCS: 93005; G0121; J1805; J2371

== ENCOUNTER → 2023-12-01 | Outpatient (REF) | payer MEDICARE, OTHER ==
[2023-12-01 14:38] LABS: CALCIUM LEVEL 9.4 MG/DL (8.3-10.6); CREATININE FOR GFR 1.5 MG/DL (0.70-1.30); GLOMERULAR FILTRATION RATE 49.3 (>42); MAGNESIUM LEVEL 1.9 MG/DL (1.8-2.4); POTASSIUM SERUM 4.5 MMOL/L (3.5-5.1)
== END ==
LOC: M LABDRWAD 12:48
PROVIDERS: ATTEND Internal Medicine
DX: Z01.812 Encounter for preprocedural laboratory examination (principal)

== ENCOUNTER → 2023-12-19 | Outpatient (REF) | payer MEDICARE, OTHER ==
[2023-12-19 13:25] LABS: ALBUMIN 4.3 G/DL (3.2-5.2); BILIRUBIN,TOTAL 0.9 MG/DL (0.3-1.2); CALCIUM LEVEL 10.1 MG/DL (8.3-10.6); CHOLESTEROL RISK RATIO 2.99 (<5); CREATININE FOR GFR 1.84 MG/DL (0.70-1.30); GLOMERULAR FILTRATION RATE 38.9 (>42); HDL CHOLESTEROL 53.5 MG/DL (>40); LDL CHOLESTEROL 86.3 MG/DL (<100); NON-HDL-C 106.5 MG/DL; TOTAL PROTEIN 7.4 G/DL (5.7-8.2)
[2023-12-19 13:37] LABS: HEMOGLOBIN A1c 5.9 % (4.0-6.0)
== END ==
LOC: M SFHCADAM 07:37
PROVIDERS: ATTEND Family Medicine
DX: I11.9 Hypertensive heart disease without heart failure (principal); E11.9 Type 2 diabetes mellitus without complications; E78.2 Mixed hyperlipidemia

== ENCOUNTER → 2024-03-28 | Outpatient (REF) | payer MEDICARE, OTHER ==
[2024-03-28 18:39] LABS: HEMOGLOBIN 15.6 g/dl (13.5-17.5); MEAN CORPUSCULAR HEMOGLOBIN 28.7 pg (27.0-33.0); MEAN CORPUSCULAR HGB CONC 33.2 g/dl (32.0-36.5); MEAN CORPUSCULAR VOLUME 86.4 fl (80.0-96.0); PLATELET COUNT, AUTOMATED 295 10^3/uL (150-450); RED BLOOD COUNT 5.44 10^6/uL (4.30-6.10); WHITE BLOOD COUNT 9.4 10^3/uL (4.0-10.0)
[2024-03-28 18:42] LABS: CALCIUM LEVEL 10.1 MG/DL (8.3-10.6); CREATININE FOR GFR 1.64 MG/DL (0.70-1.30); GLOMERULAR FILTRATION RATE 44.3 (>42); POTASSIUM SERUM 3.7 MMOL/L (3.5-5.1)
== END ==
LOC: M LABWUC 16:15
PROVIDERS: ATTEND Internal Medicine
DX: I48.91 Unspecified atrial fibrillation (principal); G89.18 Other acute postprocedural pain

== ENCOUNTER → 2024-04-05 | Outpatient (REF) | payer MEDICARE, OTHER ==
[2024-04-05 18:42] LABS: TOTAL PROTEIN,RANDOM URINE 35.1 MG/DL (0.0-14.0)
== END ==
LOC: M LAB REF 17:09
PROVIDERS: ATTEND Internal Medicine Nephrology
DX: R80.9 Proteinuria, unspecified (principal)

== ENCOUNTER → 2024-06-27 | Outpatient (REF) | payer MEDICARE, OTHER ==
[2024-06-27 14:35] LABS: HEMATOCRIT 40.2 % (42.0-52.0); HEMOGLOBIN 13.1 g/dl (13.5-17.5); MEAN CORPUSCULAR HEMOGLOBIN 28.4 pg (27.0-33.0); MEAN CORPUSCULAR HGB CONC 32.6 g/dl (32.0-36.5); PLATELET COUNT, AUTOMATED 284 10^3/uL (150-450); RED BLOOD COUNT 4.62 10^6/uL (4.30-6.10); WHITE BLOOD COUNT 6.4 10^3/uL (4.0-10.0)
[2024-06-27 15:02] LABS: CALCIUM LEVEL 9.5 MG/DL (8.3-10.6); CREATININE FOR GFR 1.68 MG/DL (0.70-1.30); GLOMERULAR FILTRATION RATE 43.2 (>42); POTASSIUM SERUM 4.2 MMOL/L (3.5-5.1)
[2024-06-27 15:19] LABS: HEMOGLOBIN A1c 5.8 % (4.0-6.0)
== END ==
LOC: M SFHCADAM 07:15
PROVIDERS: ATTEND Family Medicine
DX: N18.32 Chronic kidney disease, stage 3b (principal); E11.9 Type 2 diabetes mellitus without complications

== ENCOUNTER → 2025-02-10 | Outpatient (CLI) | payer MEDICARE, OTHER ==
[~2025-02-10] MED LIST changes: -IBUP-1022 PO; +IBUP600T42 PO; -KETO0.5S4; +KETO5DRO32
[2025-02-10 13:01] LABS: CREATININE, URINE 168.3 MG/DL
[2025-02-10 13:02] LABS: MALB URINE SIEMENS 93.0 MG/L; MAU/CREAT RATIO 55.2 MCG/MG (0.0-30.0)
[2025-02-10 13:31] LABS: ALT/SGPT 17.0 U/L (7.0-40); AST/SGOT 18.0 U/L (<34); CALCIUM LEVEL 9.2 MG/DL (8.3-10.6); CARBON DIOXIDE LEVEL 27.0 MMOL/L (20-31); CHLORIDE LEVEL 103.0 MMOL/L (98-107); CHOLESTEROL LEVEL 184.0 MG/DL (<200); CHOLESTEROL RISK RATIO 2.5 (<5); CREATININE FOR GFR 1.88 MG/DL (0.70-1.30); GLOMERULAR FILTRATION RATE 37.7 (>42); LDL CHOLESTEROL 94.6 MG/DL (<100); NON-HDL-C 110.6 MG/DL; POTASSIUM SERUM 3.9 MMOL/L (3.5-5.1); PROSTATIC SPECIFIC AG MONITOR 2.75 NG/ML (< 4.00); SODIUM LEVEL 140.0 MMOL/L (136-145); TRIGLYCERIDES LEVEL 80.0 MG/DL (<150)
[2025-02-10 13:34] LABS: PLATELET COUNT, AUTOMATED 414 10^3/uL (150-450)
[2025-02-10 13:38] LABS: ESTIMATED AVERAGE GLUCOSE 137.0 MG/DL (60-110)
== END ==
LOC: M WUC 08:08
PROVIDERS: ATTEND Family Medicine
DX: I11.9 Hypertensive heart disease without heart failure (principal); R97.20 Elevated prostate specific antigen [PSA]

== ENCOUNTER → 2025-02-13 | Outpatient (REF) | payer MEDICARE, OTHER ==
[2025-02-13 17:33] LABS: PLATELET COUNT, AUTOMATED 422 10^3/uL (150-450)
[2025-02-13 17:41] LABS: IRON (FE) 13 UG/DL (65-175); PERCENT SATURATION 3.0 % (19.7-50.0)
[2025-02-13 17:42] LABS: FREE T4 1.27 NG/DL (0.89-1.76)
[2025-02-13 17:43] LABS: VITAMIN B12 LEVEL 420 PG/ML (211-911)
== END ==
LOC: M SFHCADAM 11:34
PROVIDERS: ATTEND Family Medicine
DX: D53.9 Nutritional anemia, unspecified (principal); M79.2 Neuralgia and neuritis, unspecified

== ENCOUNTER 2025-03-25 09:52 | Day surgery (SDC) | payer MEDICARE, OTHER ==
[~2025-03-25] VITALS: Ht 182.9 cm; Wt 78.5 kg
[~2025-03-25 09:52] MED LIST changes: +CIAL10TA PO; +DILT1TAB3 PO; +FERR325T3 PO; +FLEC50HA PO; +FLON1SPR; +LIDOCAINE 2% 100 MG/5 ML SDV (FOR ANES.) As Ordered ONE
[2025-03-25 13:14] VITALS: TEMP 97.5
[2025-03-25 13:24] VITALS: BP 140/70; O2SAT 97
== END 2025-03-25 13:33 | disposition home or self-care (01) ==
LOC: M OPP 09:52
PROVIDERS: ATTEND Internal Medicine Gastroenterology
DX: D50.9 Iron deficiency anemia, unspecified (principal); D12.3 Benign neoplasm of transverse colon; K57.30 Diverticulosis of large intestine without perforation or abscess without bleeding; I48.91 Unspecified atrial fibrillation; I12.9 Hypertensive chronic kidney disease with stage 1 through stage 4 chronic kidney disease, or unspecified chronic kidney disease; N18.30 Chronic kidney disease, stage 3 unspecified; Z87.19 Personal history of other diseases of the digestive system; Z79.899 Other long term (current) drug therapy; Z79.01 Long term (current) use of anticoagulants; Z88.0 Allergy status to penicillin
CPT/HCPCS: 43235; 45385; 88305; J3010